=== PATIENT | male | born 1955 | race African-American/Black ===

== ENCOUNTER 2024-03-25 01:39 | Inpatient (IN) | payer MEDICARE, MEDICAID ==
[~2024-03-25] VITALS: Ht 190.5 cm; Wt 74.2 kg
[2024-03-25] MEDS: ACETAMINOPHEN 325MG TABLET PO ONE (03:31)
[2024-03-25] MEDS: ONDANSETRON HCL 4MG/2ML INJ IV STA (09:32)
[2024-03-25 09:56] LABS: BASOPHILS % 0.1 % (0.0-2.0); EOSINOPHILS % 0.1 % (0.0-5.0); HEMATOCRIT. 46.5 % (42.0-52.0); HEMOGLOBIN. 15.6 g/dL (14.0-18.0); LYMPHOCYTES % 7.5 % (20.0-50.0); MEAN CORPUSCULAR HEMOGLOBIN 31.4 pg (28.0-32.0); MEAN CORPUSCULAR HGB CONC 33.6 g/dL (31.0-37.0); MEAN CORPUSCULAR VOLUME 93.6 fL (80.0-94.0); NEUTROPHILS % 85.3 % (40.0-76.0); PLATELET 195 x1000/uL (130-400); RED BLOOD CELL COUNT 4.97 mill/uL (4.7-6.1); RED CELL DISTRIBUTION WIDTH 13.3 % (11.6-14.6); WHITE BLOOD COUNT 11.9 x1000/uL (4.5-11.0)
[2024-03-25] MEDS: SODIUM CHLORIDE 0.9% 1,000 ML IV ONE (10:03)
[2024-03-25 10:04] LABS: CHLORIDE 101 mEq/L (98-107); POTASSIUM 4.2 mEq/L (3.5-5.1); SODIUM 135 mEq/L (136-145)
[2024-03-25 10:05] LABS: INR 1.1; PROTHROMBIN TIME 12.4 sec (9.6-11.0)
[2024-03-25 10:06] LABS: BG BASE EXCESS -4.4 mmol/L (-2.0-2.0); BG CARBOXYHEMOGLOBIN 2.1 % (0.5-1.5); BG DEOXYHEMOGLOBIN 2.9 % (0.0-5.0); BG FRACTION INSPIRED OXYGEN 100; BG HCO3 ACT 19.7 mmol/L (22.0-26.0); BG METHEMOGLOBIN 0.2 % (0.0-1.5); BG OXYHEMOGLOBIN 94.8 % (94.0-97.0); BG PH 7.381 (7.350-7.450); BG PO2 102.7 mmHg (75.0-100.0); BG SAMPLE SITE RIGHT BRACHIAL; BG TOTAL HEMOGLOBIN 16.4 g/dL (12.0-18.0); BG VENT MODE MASK - NRB
[2024-03-25 10:07] LABS: CALCIUM 9.1 mg/dL (8.7-10.4); CARBON DIOXIDE 22 mEq/L (21-32)
[2024-03-25 10:12] LABS: GLUCOSE 134 mg/dL (70-105)
[2024-03-25 10:14] LABS: ALANINE AMINOTRANSFERASE 456 IU/L (10-49); ALBUMIN 4.4 g/dL (3.2-4.8); ASPARTATE AMINOTRANSFERASE 370 IU/L (<34); BILIRUBIN TOTAL 1.6 mg/dL (0.1-1.0); PROTEIN TOTAL 7.7 g/dL (6.0-8.3)
[2024-03-25 10:24] LABS: CLARITY URINE CLOUDY (CLEAR); COLOR URINE DARK YELLOW (YELLOW); GLUCOSE URINE NEGATIVE (NEGATIVE); KETONES URINE TRACE (NEGATIVE); LEUKOCYTE ESTERASE URINE TRACE (NEGATIVE); NITRITE URINE NEGATIVE (NEGATIVE); OCCULT BLOOD URINE NEGATIVE (NEGATIVE); PROTEIN URINE 2+ (NEGATIVE); SPECIFIC GRAVITY URINE 1.018 (1.005-1.030)
[2024-03-25 10:34] LABS: ETHANOL BLOOD < 10 mg/dL (<10)
[2024-03-25 10:36] LABS: TROPONIN I HIGH SENSITIVITY 101 ng/L (3.0-53)
[2024-03-25 10:37] LABS: *AMPHETAMINES SCREEN URINE NEGATIVE (NEGATIVE); *BARBITURATES SCREEN URINE NEGATIVE (NEGATIVE); *BENZODIAZEPINES SCREEN URINE PRESUMPTIVE POSITIVE (NEGATIVE); *COCAINE SCREEN URINE PRESUMPTIVE POSITIVE (NEGATIVE); CANNABINOID URINE SCREEN NEGATIVE (NEGATIVE); ECSTASY MDMA SCREEN URINE NEGATIVE (NEGATIVE); METHADONE URINE SCREEN NEGATIVE (NEGATIVE); OPIATES URINE SCREEN NEGATIVE (NEGATIVE); PHENCYCLIDINE URINE SCREEN NEGATIVE (NEGATIVE)
[2024-03-25] MEDS: NALOXONE HCL 0.4MG/ML 1ML VIAL IV ONE (10:50)
[2024-03-25 10:59] LABS: FINE GRANULAR CASTS URINE 0-5 /lpf; HYALINE CASTS URINE 0-5 /lpf
[2024-03-25 11:00] LABS: RBC URINE NONE SEEN /hpf (0-2); WBC URINE 0-2 /hpf (0-2)
[2024-03-25 11:01] LABS: BACTERIA URINE 1+; CALCIUM OXALATE CRYSTALS URINE 1+ /lpf; COARSE GRANULAR CASTS URINE 0-5 /lpf; SQUAMOUS EPITHELIAL CELL URINE FEW /lpf (RARE/1+)
[2024-03-25] MEDS ORDERED: GUAIFENESIN 200MG/10ML SUGAR FREE UDC PO PRN (11:30)
[2024-03-25] MEDS ORDERED: ONDANSETRON HCL 4MG/2ML INJ IV PRN (11:30)
[2024-03-25] MEDS ORDERED: IPRATROPIUM/ALBUTEROL 0.5-3(2.5)MG/3ML NEB HHN PRN (11:30)
[2024-03-25] MEDS: MIDAZOLAM HCL 2 MG/2 ML VIAL IV ONE (12:10)
[2024-03-25] MEDS: LIDOCAINE HCL 1% 20ML VIAL (Pyxis) INJ INFIL ONE (12:15)
[2024-03-25 12:19] LABS: CREATININE 1.6 mg/dL (0.6-1.3)
[2024-03-25 12:24] LABS: UREA NITROGEN BLOOD 19 mg/dL (9-23)
[2024-03-25 12:33] LABS: CREATINE KINASE 1182 IU/L (46-171)
[2024-03-25] MEDS: MVI, ADULT NO.1 10 ML, FOLIC ACID 1 MG, THIAMINE HCL 100 MG in SODIUM CHLORIDE 0.9% 1,0... IV SCH (13:21)
[2024-03-25] MEDS: PANTOPRAZOLE SODIUM 40 MG/VIAL IV SCH (13:21)
[2024-03-25] MEDS: IOHEXOL-350 100 ML BOTTLE ONE (15:16)
[2024-03-25 16:20] LABS: TROPONIN I HIGH SENSITIVITY 203 ng/L (3.0-53)
[2024-03-25] MEDS: HYDRALAZINE 20MG/ML VIAL IV PRN (16:34)
[2024-03-25 17:45] VITALS: BP_SYST 156; BP_SYST 160; BP_DIAS 85; BP_DIAS 90; PULSE 100; PULSE 102; RESP 20; TEMP 98
[2024-03-25 18:23] VITALS: BP 170/90
[2024-03-25] MEDS: LORAZEPAM 2MG/ML INJ IV PRN (19:49)
[2024-03-25 20:00] VITALS: BP 169/88; PULSE 104; RESP 29; TEMP 98.3; TEMP 98.4
[2024-03-25 22:00] VITALS: BP 164/93; PULSE 99; RESP 29
[2024-03-25] MEDS: DEXT 5%/0.9% NACL 1,000 ML IV ONE (22:55)
[2024-03-25] MEDS: LABETALOL 5MG/ML SYR 20 MG/4 ML SYRINGE IV NR (23:10)
[2024-03-25] MEDS: ACETAMINOPHEN 650MG SUPP PR NR (23:51)
[2024-03-26] VITALS (12 sets, daily range): BP systolic 154–181; BP diastolic 85–101; PULSE 80–92; RESP 18–30; TEMP 97.1–102.4
[2024-03-26] MEDS ORDERED: THIAMINE HCL 200 MG in SODIUM CHLORIDE 0.9% 98 ML IV NR (03:00)
[2024-03-26] MEDS: THIAMINE HCL 200 MG in SODIUM CHLORIDE 0.9% 98 ML IV NR (03:08)
[2024-03-26 09:57] LABS: BASOPHILS % 0.4 % (0.0-2.0); EOSINOPHILS % 0.2 % (0.0-5.0); HEMATOCRIT. 38.3 % (42.0-52.0); HEMOGLOBIN. 12.8 g/dL (14.0-18.0); LYMPHOCYTES % 15.6 % (20.0-50.0); MEAN CORPUSCULAR HEMOGLOBIN 31.2 pg (28.0-32.0); MEAN CORPUSCULAR HGB CONC 33.5 g/dL (31.0-37.0); MEAN CORPUSCULAR VOLUME 93.2 fL (80.0-94.0); MEAN PLATELET VOLUME 8.5 fl (7.4-10.4); MONOCYTES % 7.3 % (2.0-8.0); NEUTROPHILS % 76.5 % (40.0-76.0); PLATELET 126 x1000/uL (130-400); RED BLOOD CELL COUNT 4.11 mill/uL (4.7-6.1); RED CELL DISTRIBUTION WIDTH 13.7 % (11.6-14.6); WHITE BLOOD COUNT 9.7 x1000/uL (4.5-11.0)
[2024-03-26 09:59] LABS: CHLORIDE 110 mEq/L (98-107); SODIUM 139 mEq/L (136-145)
[2024-03-26 10:00] LABS: CALCIUM 8.2 mg/dL (8.7-10.4); CARBON DIOXIDE 24 mEq/L (21-32)
[2024-03-26 10:05] LABS: CREATININE 1.1 mg/dL (0.6-1.3); GLUCOSE 121 mg/dL (70-105); UREA NITROGEN BLOOD 15 mg/dL (9-23)
[2024-03-26 10:07] LABS: ALANINE AMINOTRANSFERASE 283 IU/L (10-49); ALBUMIN 3.7 g/dL (3.2-4.8); ASPARTATE AMINOTRANSFERASE 212 IU/L (<34); BILIRUBIN TOTAL 1.4 mg/dL (0.1-1.0); PROTEIN TOTAL 6.5 g/dL (6.0-8.3)
[2024-03-26 10:09] LABS: THYROID STIMULATING HORMONE 0.83 uIU/mL (0.55-4.78)
[2024-03-26 10:24] LABS: CREATINE KINASE 1589 IU/L (46-171)
[2024-03-26 12:12] LABS: TROPONIN I HIGH SENSITIVITY 69 ng/L (3.0-53)
[2024-03-26 12:15] LABS: CREATINE KINASE 1565 IU/L (46-171)
[2024-03-26] MEDS: DEXT 5%/0.9% NACL 1,000 ML IV ONE (15:00)
[2024-03-26 17:23] LABS: AMMONIA < 17 uMol/L (<32)
[2024-03-27] VITALS (12 sets, daily range): BP systolic 133–187; BP diastolic 73–102; PULSE 70–92; RESP 19–29; TEMP 97.8–99.3
[2024-03-27] MEDS ORDERED: DEXT 5%/0.9% NACL 1,000 ML IV SCH (05:30)
[2024-03-27 06:51] LABS: HEMATOCRIT 36.4 % (42.0-52.0); HEMOGLOBIN 12.3 g/dL (14.0-18.0); MEAN CORPUSCULAR HEMOGLOBIN 31.4 pg (28.0-32.0); MEAN CORPUSCULAR HGB CONC 33.7 g/dL (31.0-37.0); MEAN CORPUSCULAR VOLUME 93.2 fL (80.0-94.0); PLATELET 115 x1000/uL (130-400); RED BLOOD CELL COUNT 3.91 mill/uL (4.7-6.1); RED CELL DISTRIBUTION WIDTH 13.3 % (11.6-14.6); WHITE BLOOD COUNT 8.9 x1000/uL (4.5-11.0)
[2024-03-27 07:11] LABS: CHLORIDE 111 mEq/L (98-107); POTASSIUM 4.4 mEq/L (3.5-5.1); SODIUM 144 mEq/L (136-145)
[2024-03-27 07:14] LABS: CALCIUM 8.4 mg/dL (8.7-10.4); CARBON DIOXIDE 25 mEq/L (21-32)
[2024-03-27 07:19] LABS: ALANINE AMINOTRANSFERASE 240 IU/L (10-49); GLUCOSE 111 mg/dL (70-105); UREA NITROGEN BLOOD 16 mg/dL (9-23)
[2024-03-27 07:20] LABS: ALBUMIN 3.6 g/dL (3.2-4.8)
[2024-03-27 07:21] LABS: ASPARTATE AMINOTRANSFERASE 180 IU/L (<34); CREATINE KINASE 791 IU/L (46-171); PHOSPHORUS 2.1 mg/dL (2.5-4.9); PROTEIN TOTAL 6.6 g/dL (6.0-8.3)
[2024-03-27] MEDS: FAMOTIDINE 20MG/2ML VIAL IV SCH (09:37)
[2024-03-27] MEDS: FOLIC ACID 1 MG in SODIUM CHLORIDE 0.9% 500 ML IV NR (09:37)
[2024-03-27] MEDS: THIAMINE HCL 100 MG in SODIUM CHLORIDE 0.9% 49 ML IV NR (09:37)
[2024-03-27] MEDS: SODIUM PHOSPHATE 10 MMOL in DEXT 5% WATER 246.6667 ML IV NR (11:07)
[2024-03-27] MEDS: ACETAMINOPHEN 325MG TABLET PO PRN (11:08)
[2024-03-27] MEDS ORDERED: NALOXONE HCL 0.4MG/ML VIAL IV PRN (15:15)
[2024-03-27] MEDS: MORPHINE SULFATE 2 MG/ML CPJ (NOT FOR IM USE) IV PRN (15:21)
[2024-03-27] MEDS: SODIUM CHLORIDE 0.45% 1,000 ML IV ONE (18:18)
[2024-03-27] MEDS: KETOROLAC 15MG/ML VIAL IV PRN (19:14)
[2024-03-28] VITALS (12 sets, daily range): BP systolic 133–180; BP diastolic 63–85; PULSE 76–93; RESP 18–32; TEMP 97.6–98.8
[2024-03-28 05:53] LABS: HEMATOCRIT 32.9 % (42.0-52.0); HEMOGLOBIN 11.2 g/dL (14.0-18.0); MEAN CORPUSCULAR HEMOGLOBIN 31.7 pg (28.0-32.0); MEAN CORPUSCULAR HGB CONC 34.1 g/dL (31.0-37.0); PLATELET 115 x1000/uL (130-400); RED BLOOD CELL COUNT 3.54 mill/uL (4.7-6.1); RED CELL DISTRIBUTION WIDTH 13.5 % (11.6-14.6); WHITE BLOOD COUNT 7.1 x1000/uL (4.5-11.0)
[2024-03-28 06:03] LABS: CARBON DIOXIDE 24 mEq/L (21-32); CHLORIDE 110 mEq/L (98-107); POTASSIUM 3.8 mEq/L (3.5-5.1); SODIUM 141 mEq/L (136-145)
[2024-03-28 06:04] LABS: CALCIUM 7.9 mg/dL (8.7-10.4)
[2024-03-28 06:09] LABS: GLUCOSE 95 mg/dL (70-105); UREA NITROGEN BLOOD 22 mg/dL (9-23)
[2024-03-28 06:10] LABS: ALANINE AMINOTRANSFERASE 188 IU/L (10-49); ALBUMIN 3.1 g/dL (3.2-4.8)
[2024-03-28 06:11] LABS: ASPARTATE AMINOTRANSFERASE 143 IU/L (<34); CREATINE KINASE 378 IU/L (46-171); PHOSPHORUS 2.1 mg/dL (2.5-4.9); PROTEIN TOTAL 5.5 g/dL (6.0-8.3)
[2024-03-28] MEDS: AMLODIPINE 5MG TABLET PO SCH (08:33)
[2024-03-28] MEDS: CLONIDINE 0.1MG TABLET PO PRN (15:13)
[2024-03-29] VITALS (12 sets, daily range): BP systolic 120–180; BP diastolic 70–160; PULSE 68–90; RESP 16–25; TEMP 97.7–98.8
[2024-03-29 06:58] LABS: CARBON DIOXIDE 21 mEq/L (21-32); CHLORIDE 113 mEq/L (98-107); POTASSIUM 3.9 mEq/L (3.5-5.1); SODIUM 141 mEq/L (136-145)
[2024-03-29 06:59] LABS: CALCIUM 8.4 mg/dL (8.7-10.4)
[2024-03-29 07:04] LABS: CREATININE 0.9 mg/dL (0.6-1.3); GLUCOSE 90 mg/dL (70-105); UREA NITROGEN BLOOD 17 mg/dL (9-23)
[2024-03-29 07:06] LABS: PHOSPHORUS 2.4 mg/dL (2.5-4.9)
[2024-03-29 08:00] LABS: HEMATOCRIT 34.1 % (42.0-52.0); HEMOGLOBIN 11.9 g/dL (14.0-18.0); MEAN CORPUSCULAR HEMOGLOBIN 32.5 pg (28.0-32.0); MEAN CORPUSCULAR HGB CONC 34.8 g/dL (31.0-37.0); MEAN CORPUSCULAR VOLUME 93.3 fL (80.0-94.0); RED BLOOD CELL COUNT 3.66 mill/uL (4.7-6.1); WHITE BLOOD COUNT 7.5 x1000/uL (4.5-11.0)
[2024-03-29] MEDS: DOCUSATE SODIUM 100MG CAPSULE PO PRN (08:35)
[2024-03-29] MEDS: FAMOTIDINE 20MG TABLET PO SCH (08:35)
[2024-03-29 09:25] LABS: PLATELET 148 x1000/uL (130-400)
[2024-03-29] MEDS: ENOXAPARIN 40MG/0.4ML SYR SUBCUT SCH (13:46)
[2024-03-29] MEDS: POTASSIUM PHOSPHATE 15 MMOL in DEXT 5% WATER 245 ML IV NR (14:33)
[2024-03-29] MEDS: MAGNESIUM 1 G PREMIX 100 ML IV NR (14:33)
[2024-03-29] MEDS: LOSARTAN 50 MG TABLET PO NR (23:12)
[2024-03-30] VITALS (12 sets, daily range): BP systolic 137–179; BP diastolic 68–100; PULSE 70–92; RESP 16–23; TEMP 97–98.2
[2024-03-30] MEDS: KETOROLAC 15MG/ML VIAL IV PRN (06:56)
[2024-03-31] VITALS (12 sets, daily range): BP systolic 143–169; BP diastolic 60–106; PULSE 69–80; RESP 14–24; TEMP 97.3–99.1
[2024-03-31 06:44] LABS: HEMATOCRIT 35.7 % (42.0-52.0); HEMOGLOBIN 12.2 g/dL (14.0-18.0); MEAN CORPUSCULAR HEMOGLOBIN 31.3 pg (28.0-32.0); MEAN CORPUSCULAR HGB CONC 34.2 g/dL (31.0-37.0); MEAN CORPUSCULAR VOLUME 91.7 fL (80.0-94.0); PLATELET 176 x1000/uL (130-400); RED CELL DISTRIBUTION WIDTH 13.1 % (11.6-14.6); WHITE BLOOD COUNT 6.7 x1000/uL (4.5-11.0)
[2024-03-31 06:45] LABS: CHLORIDE 107 mEq/L (98-107); POTASSIUM 3.9 mEq/L (3.5-5.1); SODIUM 140 mEq/L (136-145)
[2024-03-31 06:46] LABS: CARBON DIOXIDE 24 mEq/L (21-32)
[2024-03-31 06:47] LABS: CALCIUM 8.8 mg/dL (8.7-10.4)
[2024-03-31 06:51] LABS: GLUCOSE 88 mg/dL (70-105)
[2024-03-31 06:52] LABS: UREA NITROGEN BLOOD 17 mg/dL (9-23)
[2024-03-31 06:54] LABS: PHOSPHORUS 3.2 mg/dL (2.5-4.9)
[2024-03-31] MEDS: MAGNESIUM 2 G PREMIX 50 ML IV NR (15:00)
[2024-04-01] VITALS (9 sets, daily range): BP systolic 129–154; BP diastolic 69–88; PULSE 65–79; RESP 15–21; TEMP 97.3–98.4
[2024-04-01] MEDS: MORPHINE SULFATE 2 MG/ML CPJ (NOT FOR IM USE) IV NR (09:21)
[2024-04-01] MEDS: HYDROCODONE/ACETAMINOPHEN 5/325MG TABLET PO NR (10:15)
[2024-04-01] MEDS: MULTIVITAMINS,THER W-MINERALS TABLET PO SCH (16:42)
[2024-04-02] VITALS: BP 156/85; PULSE 75; RESP 25; TEMP 97.3
[2024-04-02 04:00] VITALS: BP 145/79; PULSE 69; RESP 18; TEMP 98.4
[2024-04-02 08:00] VITALS: BP 160/85; PULSE 72; RESP 20; TEMP 97.9
[2024-04-02 12:00] VITALS: BP 152/83; PULSE 65; RESP 18; TEMP 98.4
[2024-04-02] MEDS ORDERED: AMLO5TAB88 PO (14:17)
[2024-04-02 16:00] VITALS: BP 123/83; PULSE 72; RESP 20; TEMP 97.9
[2024-04-02 20:00] VITALS: BP 151/83; PULSE 81; RESP 18; TEMP 97.7
[2024-04-03] VITALS: BP 139/79; PULSE 82; RESP 18; TEMP 97.9
[2024-04-03 04:00] VITALS: BP 147/78; PULSE 79; RESP 18; TEMP 97.9
[2024-04-03 08:00] VITALS: BP 164/86; PULSE 65; RESP 20; TEMP 96.9
[2024-04-03 12:00] VITALS: BP 126/75; PULSE 79; RESP 20; TEMP 97.2
[2024-04-03 15:09] VITALS: BP 126/75; PULSE 79; TEMP 97.2; O2SAT 100
== END 2024-04-03 16:16 | DRG 816 ==
LOC: ER 01:39 → 5EST 10:46 → EDBEDREQTM 10:52 → EDBEDREQ 10:52 → EDBEDREQSVC 14:28 → 5EST 16:47 → 6EST 04-02 05:33
PROVIDERS: ADMIT Preventive Medicine Clinical Informatics; ATTEND Preventive Medicine Clinical Informatics
PROC: 0W9930Z Drainage of Right Pleural Cavity with Drainage Device, Percutaneous Approach (ICD-10-PCS; principal; 2024-03-25)
PROC: 0WP930Z Removal of Drainage Device from Right Pleural Cavity, Percutaneous Approach (ICD-10-PCS; 2024-04-01)
DX: T40.5X1A Poisoning by cocaine, accidental (unintentional), initial encounter (principal); N17.0 Acute kidney failure with tubular necrosis; J96.01 Acute respiratory failure with hypoxia; G92.8 Other toxic encephalopathy; S27.0XXA Traumatic pneumothorax, initial encounter; I21.A1 Myocardial infarction type 2; D69.6 Thrombocytopenia, unspecified; E83.39 Other disorders of phosphorus metabolism; S82.201A Unspecified fracture of shaft of right tibia, initial encounter for closed fracture; R74.01 Elevation of levels of liver transaminase levels; I10 Essential (primary) hypertension; D64.9 Anemia, unspecified; E11.65 Type 2 diabetes mellitus with hyperglycemia; F17.200 Nicotine dependence, unspecified, uncomplicated; E11.40 Type 2 diabetes mellitus with diabetic neuropathy, unspecified; S40.822A Blister (nonthermal) of left upper arm, initial encounter; X58.XXXA Exposure to other specified factors, initial encounter; T42.4X1A Poisoning by benzodiazepines, accidental (unintentional), initial encounter; E83.42 Hypomagnesemia; F10.10 Alcohol abuse, uncomplicated; V89.2XXA Person injured in unspecified motor-vehicle accident, traffic, initial encounter; Z79.899 Other long term (current) drug therapy; Y93.89 Activity, other specified; Y92.89 Other specified places as the place of occurrence of the external cause; Y99.8 Other external cause status
CPT/HCPCS: 36415; 36600; 71045; 71260; 73562; 73700; 74177; 76770; 80048; 80053; 80305; 80320; 81003; 82140; 82375; 82550; 82805; 82962; 83036; 83605; 83735; 83880; 84100; 84145; 84439; 84443; 84484; 85025; 85027; 86850; 86900; 93005; 93306; 97162; 97166; 97535; 99285; C1893; C9113; J0360; J1650; J1885; J2060; J2250; J2270; J2310; J3411; J3475; J3490; J7030; J7040; J7050; J7060; Q9967; G0480

== ENCOUNTER 2024-07-08 10:55 | Emergency (ER) | payer MEDICARE, MEDICAID ==
[~2024-07-08] VITALS: Ht 190.5 cm; Wt 79.4 kg
[~2024-07-08 10:55] MED LIST: AMLO5TAB88 PO
[2024-07-08 11:35] LABS: MEAN CORPUSCULAR HEMOGLOBIN 30.4 pg (28.0-32.0); MEAN CORPUSCULAR HGB CONC 32.6 g/dL (31.0-37.0); MEAN CORPUSCULAR VOLUME 93.5 fL (80.0-94.0); MEAN PLATELET VOLUME 8.3 fl (7.4-10.4); PLATELET 212 x1000/uL (130-400); RED BLOOD CELL COUNT 5.24 mill/uL (4.7-6.1); RED CELL DISTRIBUTION WIDTH 14.3 % (11.6-14.6); WHITE BLOOD COUNT 5.2 x1000/uL (4.5-11.0)
[2024-07-08 11:37] LABS: DIFFERENTIAL COMMENT 1
[2024-07-08 11:48] LABS: CHLORIDE 105 mEq/L (98-107); POTASSIUM 4.3 mEq/L (3.5-5.1); SODIUM 137 mEq/L (136-145)
[2024-07-08 11:49] LABS: CALCIUM 9.9 mg/dL (8.7-10.4); CARBON DIOXIDE 25 mEq/L (21-32)
[2024-07-08 11:54] LABS: CREATININE 1.1 mg/dL (0.6-1.3); GLUCOSE 98 mg/dL (70-105); UREA NITROGEN BLOOD 8 mg/dL (9-23)
[2024-07-08 11:55] LABS: TROPONIN I HIGH SENSITIVITY 11 ng/L (3.0-53)
[2024-07-08 12:49] LABS: PLATELET ESTIMATE NORMAL
[2024-07-08] MEDS: DEXAMETHASONE 10 MG/ML VIAL IM ONE (12:57)
[2024-07-08 13:16] VITALS: PULSE 66; RESP 20; O2SAT 94
[2024-07-08] MEDS: IPRATROPIUM/ALBUTEROL 0.5-3(2.5)MG/3ML NEB HHN ONE (13:16)
[2024-07-08] MEDS ORDERED: P50 MT (13:45)
[2024-07-08] MEDS ORDERED: ALBU6.7H15 INH (13:45)
[2024-07-08 13:59] VITALS: BP 168/99; PULSE 61; RESP 20; TEMP 98
== END 2024-07-08 14:07 | disposition home or self-care (01) ==
LOC: ER 10:55
DX: J44.1 Chronic obstructive pulmonary disease with (acute) exacerbation (principal); R06.02 Shortness of breath; I11.0 Hypertensive heart disease with heart failure; I50.9 Heart failure, unspecified
CPT/HCPCS: 80048; 85025; 84484; 36415; 71045; 94640; 93005; 96372; 99285; J1100; Z7610 ×2

== ENCOUNTER 2024-11-27 23:10 | Emergency (ER) | payer MEDICARE, MEDICAID ==
[~2024-11-27] VITALS: Ht 180.3 cm; Wt 80.0 kg
[2024-11-27] MEDS: ALBUTEROL (0.083%) 2.5MG/3ML NEB HHN STA (00:12)
[2024-11-27] MEDS: IPRATROPIUM BROMIDE (0.02%) 0.5MG/2.5ML NEB HHN STA (00:12)
[~2024-11-27 23:10] MED LIST changes: +ALBU6.7H15 INH; +P50 MT
[2024-11-27 23:11] VITALS: TEMP 97.8
[2024-11-27] MEDS ORDERED: METHYLPREDNISOLONE SOD SUCC 125MG/2ML (ACT-O-VIAL) IV STA (23:29)
[2024-11-28 00:12] VITALS: PULSE 90; RESP 22; O2SAT 96
[2024-11-28 00:57] LABS: CHLORIDE 109 mEq/L (98-107); POTASSIUM 3.6 mEq/L (3.5-5.1); SODIUM 143 mEq/L (136-145)
[2024-11-28 00:58] LABS: CARBON DIOXIDE 25 mEq/L (21-32)
[2024-11-28 00:59] LABS: CALCIUM 9.3 mg/dL (8.7-10.4)
[2024-11-28 01:00] LABS: INR 1.1; PARTIAL THROMBOPLASTIN TIME 25.4 sec (23.4-31.0); PROTHROMBIN TIME 11.8 sec (9.6-11.0)
[2024-11-28 01:03] LABS: GLUCOSE 83 mg/dL (70-105); UREA NITROGEN BLOOD 8 mg/dL (9-23)
[2024-11-28] MEDS: ASPIRIN 81MG TABLET PO NR (01:10)
[2024-11-28 01:16] LABS: BASOPHILS % 0.5 % (0.0-2.0); EOSINOPHILS % 12.8 % (0.0-5.0); HEMATOCRIT. 43.3 % (42.0-52.0); HEMOGLOBIN. 14.5 g/dL (14.0-18.0); MEAN CORPUSCULAR HGB CONC 33.6 g/dL (31.0-37.0); MEAN CORPUSCULAR VOLUME 95.1 fL (80.0-94.0); MEAN PLATELET VOLUME 8.3 fl (7.4-10.4); MONOCYTES % 10.3 % (2.0-8.0); NEUTROPHILS % 31.4 % (40.0-76.0); PLATELET 158 x1000/uL (130-400); RED BLOOD CELL COUNT 4.55 mill/uL (4.7-6.1); RED CELL DISTRIBUTION WIDTH 13.6 % (11.6-14.6); WHITE BLOOD COUNT 5.6 x1000/uL (4.5-11.0)
[2024-11-28 01:20] LABS: TROPONIN I HIGH SENSITIVITY 69 ng/L (3.0-53)
[2024-11-28] MEDS: ASPIRIN 81MG TABLET PO ONE (01:51)
[2024-11-28] MEDS: METHYLPREDNISOLONE SOD SUCC 125MG/2ML (ACT-O-VIAL) IV NR (02:17)
[2024-11-28 08:03] VITALS: BP 147/76; PULSE 87; RESP 20; O2SAT 98
== END 2024-11-28 16:09 | disposition left against medical advice (07) ==
LOC: ER 23:10 → EDBEDREQTM 11-28 01:59 → EDBEDREQ 11-28 01:59 → EDBEDREQDT 11-28 01:59 → ER 11-28 16:09
DX: J44.1 Chronic obstructive pulmonary disease with (acute) exacerbation (principal); R06.02 Shortness of breath; I48.91 Unspecified atrial fibrillation; I10 Essential (primary) hypertension; R79.89 Other specified abnormal findings of blood chemistry; F10.90 Alcohol use, unspecified, uncomplicated; Y90.9 Presence of alcohol in blood, level not specified
CPT/HCPCS: 80048; 83880; 85025; 85610; 85730; 84484; 36415; 71045; 93005; 99285; 94640; 96374; Z7610 ×4; J2919

== ENCOUNTER 2025-07-27 17:16 | Inpatient (IN) | payer MEDICARE, MEDICAID ==
[~2025-07-27] VITALS: Ht 172.7 cm; Wt 72.6 kg
[2025-07-27] MEDS ORDERED: CEFTRIAXONE 1GM/50ML 50 ML IV ONE (17:30)
[2025-07-27] MEDS ORDERED: METHYLPREDNISOLONE SOD SUCC 125MG/2ML (ACT-O-VIAL) IV ONE (17:30)
[2025-07-27 17:34] VITALS: PULSE 104; RESP 16
[2025-07-27] MEDS: ALBUTEROL (0.083%) 2.5MG/3ML NEB HHN SCH (17:35)
[2025-07-27 17:51] VITALS: PULSE 100; RESP 18
[2025-07-27] MEDS: IPRATROPIUM BROMIDE (0.02%) 0.5MG/2.5ML NEB HHN SCH (17:51)
[2025-07-27 18:12] VITALS: PULSE 100; RESP 18
[2025-07-27 18:42] LABS: HEMATOCRIT. 39.7 % (42.0-52.0); HEMOGLOBIN. 13.6 g/dL (14.0-18.0); MEAN PLATELET VOLUME 8.1 fl (7.4-10.4); PLATELET 173 x1000/uL (130-400); RED BLOOD CELL COUNT 4.21 mill/uL (4.7-6.1); RED CELL DISTRIBUTION WIDTH 12.9 % (11.6-14.6)
[2025-07-27 18:56] LABS: CREATININE 1.2 mg/dL (0.6-1.3)
[2025-07-27 18:57] LABS: ETHANOL BLOOD 76 mg/dL (<10); TROPONIN I HIGH SENSITIVITY 6 ng/L (3.0-53); UREA NITROGEN BLOOD 10 mg/dL (9-23)
[2025-07-27 18:58] LABS: ASPARTATE AMINOTRANSFERASE 122 IU/L (<34)
[2025-07-27 18:59] LABS: BILIRUBIN DIRECT 0.2 mg/dL (<=3.0); BILIRUBIN TOTAL 0.5 mg/dL (0.1-1.0); PROTEIN TOTAL 6.7 g/dL (6.0-8.3)
[2025-07-27 19:08] LABS: EOSINOPHILS % MANUAL 30.0 % (0.0-5.0); LYMPHOCYTES % MANUAL 38.0 % (20.0-50.0); MONOCYTES % MANUAL 5.0 % (2.0-8.0); NEUTROPHILS % MANUAL 27.0 % (45.0-75.0); PLATELET ESTIMATE NORMAL
[2025-07-27] MEDS: SODIUM CHLORIDE 0.9% (SEPSIS BOLUS) IV NR (20:38)
[2025-07-27] MEDS: MAGNESIUM 2 G PREMIX 50 ML IV ONE (20:38)
[2025-07-27] MEDS: AZITHROMYCIN 500MG/250ML 250 ML IV SCH (21:17)
[2025-07-27] MEDS: CEFTRIAXONE 1GM/50ML 50 ML IV NR (21:18)
[2025-07-27] MEDS: METHYLPREDNISOLONE SOD SUCC 125MG/2ML (ACT-O-VIAL) IV NR (21:26)
[2025-07-27 23:08] VITALS: BP 151/93; PULSE 94; RESP 20; TEMP 36.6404
[2025-07-28] VITALS (7 sets, daily range): BP systolic 121–153; BP diastolic 68–92; PULSE 71–86; RESP 16–20; TEMP 36.2–36.4; O2SAT 96–98
[2025-07-28] MEDS: METHYLPREDNISOLONE SOD SUCC 40MG/ML (ACT-O-VIAL) IV SCH (05:22)
[2025-07-28] MEDS: ENOXAPARIN 40MG/0.4ML SYR SUBCUT SCH (09:17)
[2025-07-28 11:21] LABS: *AMPHETAMINES SCREEN URINE NEGATIVE (NEGATIVE); *BARBITURATES SCREEN URINE NEGATIVE (NEGATIVE); *BENZODIAZEPINES SCREEN URINE NEGATIVE (NEGATIVE); *COCAINE SCREEN URINE NEGATIVE (NEGATIVE); METHADONE URINE SCREEN NEGATIVE (NEGATIVE); OPIATES URINE SCREEN PRESUMPTIVE POSITIVE (NEGATIVE); PHENCYCLIDINE URINE SCREEN NEGATIVE (NEGATIVE)
[2025-07-28 11:22] LABS: CANNABINOID URINE SCREEN NEGATIVE (NEGATIVE); ECSTASY MDMA SCREEN URINE NEGATIVE (NEGATIVE)
[2025-07-28] MEDS: IPRATROPIUM/ALBUTEROL 0.5-3(2.5)MG/3ML NEB HHN SCH (12:07)
[2025-07-28] MEDS: ACETAMINOPHEN 325MG TABLET PO PRN (12:36)
[2025-07-28] MEDS: POTASSIUM CHLORIDE 20MEQ TABLET SR PO NR (12:36)
[2025-07-28] MEDS: AZITHROMYCIN 500MG/250ML 250 ML IV SCH (17:31)
[2025-07-29] VITALS (10 sets, daily range): BP systolic 128–151; BP diastolic 80–87; PULSE 71–105; RESP 18–26; TEMP 36.1–37.1; O2SAT 92–100
[2025-07-29] MEDS: GUAIFENESIN-DM 200MG-20MG/10ML UDC PO PRN (04:59)
[2025-07-29] MEDS ORDERED: P50 MT (12:17)
[2025-07-30] VITALS (8 sets, daily range): BP systolic 141–156; BP diastolic 81–87; PULSE 61–93; RESP 16–18; TEMP 36.4–36.8; O2SAT 98–99
[2025-07-30] MEDS: PNEUMOCOCCAL 20-VAL CONJ-DIP CRM 0.5ML IM ONE (13:09)
[2025-07-30] MEDS ORDERED: AZITHROMYCIN 500 MG TABLET PO SCH (18:00)
== END 2025-07-30 14:00 | disposition home or self-care (01) | DRG 192 ==
LOC: ER 17:16 → ENRESERV 20:13 → 6WST 21:45
PROVIDERS: ADMIT Internal Medicine; ATTEND Internal Medicine
DX: J44.1 Chronic obstructive pulmonary disease with (acute) exacerbation (principal); F10.129 Alcohol abuse with intoxication, unspecified; E87.6 Hypokalemia; Z79.899 Other long term (current) drug therapy
CPT/HCPCS: 36415; 71045; 80048; 80076; 80305; 80320; 83605; 83880; 84484; 85025; 90732; 93005; 94070; 94640; 94664; 98960; 99291; J0456; J0696; J1650; J2919; J3475; G0480